=== PATIENT | male | born 1985 | race Two or more races ===

== ENCOUNTER 2018-02-20 07:56 | Outpatient (CLI) | payer BC | END 2018-02-20 23:59 | disposition home or self-care (01) | LOC: MRI 07:56 | PROVIDERS: ATTEND Legal Medicine | DX: M76.62 Achilles tendinitis, left leg (principal); M72.2 Plantar fascial fibromatosis; M65.872 Other synovitis and tenosynovitis, left ankle and foot | CPT/HCPCS: 73718-TC ==

== ENCOUNTER 2018-02-28 11:00 | Outpatient (CLI) | payer BC | END 2018-02-28 23:59 | disposition home or self-care (01) | LOC: WOU 11:00 | PROVIDERS: ATTEND Podiatrist Foot & Ankle Surgery | DX: M72.2 Plantar fascial fibromatosis (principal); M79.672 Pain in left foot | CPT/HCPCS: G0463 ==

== ENCOUNTER 2018-06-20 10:30 | Outpatient (CLI) | payer BC | END 2018-06-20 23:59 | disposition home or self-care (01) | LOC: WOU 10:30 | PROVIDERS: ATTEND Podiatrist Foot & Ankle Surgery | DX: M79.604 Pain in right leg (principal); M79.605 Pain in left leg; R10.30 Lower abdominal pain, unspecified; M54.5 Low back pain; M25.559 Pain in unspecified hip | CPT/HCPCS: G0463; Z7610 ==

== ENCOUNTER 2018-09-19 13:11 | Outpatient (CLI) | payer BC | END 2018-09-19 23:59 | disposition home or self-care (01) | LOC: MRI 13:11 | PROVIDERS: ATTEND Legal Medicine | DX: M47.897 Other spondylosis, lumbosacral region (principal); M51.26 Other intervertebral disc displacement, lumbar region; M51.37 Other intervertebral disc degeneration, lumbosacral region | CPT/HCPCS: 72148-TC; 72195-TC ==